=== PATIENT | female | born 1950 | race Caucasian/White ===

== ENCOUNTER 2021-11-17 20:13 | Inpatient (IN) | payer MEDICARE, OTHER ==
[~2021-11-17] VITALS: Ht 154.9 cm; Wt 91.6 kg
[~2021-11-17 20:13] MED LIST: ALPRAZOLAM0.5 MG PO; ASPIRIN CHEWABL81 MG PO; AZITHROMYCIN250 MG PO; BENADRYL 25MG C25 MG PO; CELEXA20 MG PO; CRESTOR5 MG PO; ECOTRIN81 MG PO; FERROUS SULFAT325 M2 PO; GLUCOPHAGE 500500 MG PO; HYDROCHLOROTHIA25 MG PO; HYDROCODON-ACE1 EAC6 PO; INVANZ1 GM IM; IPRAT-ALBUT 0.5-3 ML NEB; K-DUR TAB 10 M10 MEQ PO; LEVEMIR 10100 UNITS/ SC; LEVOFLOXACIN500 MG PO; LISINOPRIL10 MG PO; LOPRESSOR100 MG PO; LORTAB 5-325 M1 EACH PO; MULTI COMPLETE1 EACH PO; MYCOSTATIN CREA15 GM TOP; NORCO 10-325 T1 EACH PO; NORVASC10 MG PO; NOVOLIN 70100 UNIT/1 SQ; NOVOLOG 10100 UNITS1 SC; OMEPRAZOLE40 MG PO; PREDNISONE20 MG PO; PRINIVIL20 MG PO; ROBAXIN-750750 MG PO; SINGULAIR10 MG PO; TESSALON PERLE100 MG PO; TIZANIDINE HCL4 MG PO; VITAMIN B-121000 MCG PO; VITAMIN D32000 UNI1 PO; VITAMIN D350 MCG PO; ZANAFLEX4 MG PO
[2021-11-17 21:25] LABS: HEMOGLOBIN 14.3 gm/dl (12.3-15.3); RED BLOOD COUNT 5.6 M/UL (4.00-5.10); WHITE BLOOD COUNT 19.7 K/UL (4.5-11.0)
[2021-11-17 21:44] LABS: BUN/CREATININE RATIO 18 (0-10)
[2021-11-18 05:28] LABS: HEMOGLOBIN 12.3 gm/dl (12.3-15.3); RED BLOOD COUNT 4.93 M/UL (4.00-5.10); WHITE BLOOD COUNT 13.8 K/UL (4.5-11.0)
[2021-11-18 05:56] LABS: BUN/CREATININE RATIO 23 (0-10)
[2021-11-18] MEDS ORDERED: LISINOPRIL20 MG PO (10:01)
[2021-11-18] MEDS ORDERED: AMLODIPINE BESY10 MG PO (10:02)
[2021-11-18] MEDS ORDERED: POTASSIUM CHLO10 ME1 PO (10:02)
[2021-11-18] MEDS ORDERED: FLONASE 0.05% N16 GM (11:02)
[2021-11-18] MEDS ORDERED: VITAMIN D350 MCG PO (11:02)
--- NOTE | 2021-11-18 16:34 | NUR ---
COVID SWAB ALREADY COLLECTED AT 0144 ON 11/18/21. COVID WAS NEGATIVE.
[2021-11-19 02:41] LABS: HEMOGLOBIN 11.5 gm/dl (12.3-15.3); RED BLOOD COUNT 4.64 M/UL (4.00-5.10); WHITE BLOOD COUNT 11.8 K/UL (4.5-11.0)
[2021-11-19 03:16] LABS: BUN/CREATININE RATIO 24 (0-10)
[2021-11-20 02:37] LABS: HEMOGLOBIN 12.2 gm/dl (12.3-15.3); RED BLOOD COUNT 5.03 M/UL (4.00-5.10)
[2021-11-20 02:38] LABS: WHITE BLOOD COUNT 15.7 K/UL (4.5-11.0)
[2021-11-20 02:53] LABS: BUN/CREATININE RATIO 23 (0-10)
[2021-11-21 12:43] LABS: HEMOGLOBIN 12.5 gm/dl (12.3-15.3); RED BLOOD COUNT 4.92 M/UL (4.00-5.10); WHITE BLOOD COUNT 12.2 K/UL (4.5-11.0)
[2021-11-21 13:05] LABS: BUN/CREATININE RATIO 23 (0-10)
[2021-11-22 02:52] LABS: HEMOGLOBIN 11.5 gm/dl (12.3-15.3); RED BLOOD COUNT 4.63 M/UL (4.00-5.10); WHITE BLOOD COUNT 9.5 K/UL (4.5-11.0)
[2021-11-22 03:18] LABS: BUN/CREATININE RATIO 23 (0-10)
[2021-11-23 04:31] LABS: HEMOGLOBIN 11.1 gm/dl (12.3-15.3); RED BLOOD COUNT 4.49 M/UL (4.00-5.10); WHITE BLOOD COUNT 8.2 K/UL (4.5-11.0)
[2021-11-23 04:44] LABS: BUN/CREATININE RATIO 20 (0-10)
[2021-11-25 03:52] LABS: HEMOGLOBIN 12.3 gm/dl (12.3-15.3)
[2021-11-25 04:10] LABS: RED BLOOD COUNT 4.98 M/UL (4.00-5.10); WHITE BLOOD COUNT 11.8 K/UL (4.5-11.0)
[2021-11-25 04:11] LABS: BUN/CREATININE RATIO 10 (0-10)
[2021-11-26 06:32] LABS: BUN/CREATININE RATIO 14 (0-10)
[2021-11-26 06:38] LABS: HEMOGLOBIN 11.6 gm/dl (12.3-15.3); RED BLOOD COUNT 4.59 M/UL (4.00-5.10); WHITE BLOOD COUNT 10.8 K/UL (4.5-11.0)
[2021-11-27 10:04] LABS: HEMOGLOBIN 12.6 gm/dl (12.3-15.3); RED BLOOD COUNT 5.08 M/UL (4.00-5.10); WHITE BLOOD COUNT 15.3 K/UL (4.5-11.0)
[2021-11-27 10:31] LABS: BUN/CREATININE RATIO 20 (0-10)
[2021-11-28 10:23] LABS: HEMOGLOBIN 11.7 gm/dl (12.3-15.3); RED BLOOD COUNT 4.7 M/UL (4.00-5.10); WHITE BLOOD COUNT 10.4 K/UL (4.5-11.0)
[2021-11-28 10:46] LABS: BUN/CREATININE RATIO 16 (0-10)
[2021-11-29 04:04] LABS: HEMOGLOBIN 11.8 gm/dl (12.3-15.3); RED BLOOD COUNT 4.79 M/UL (4.00-5.10); WHITE BLOOD COUNT 9.9 K/UL (4.5-11.0)
[2021-11-29 04:12] LABS: BUN/CREATININE RATIO 12 (0-10)
[2021-11-30 05:15] LABS: HEMOGLOBIN 11.2 gm/dl (12.3-15.3); RED BLOOD COUNT 4.54 M/UL (4.00-5.10); WHITE BLOOD COUNT 8.8 K/UL (4.5-11.0)
[2021-11-30 05:34] LABS: BUN/CREATININE RATIO 8 (0-10)
[2021-11-30] MEDS ORDERED: ERYTHROMYCIN250 M1 PO (18:57)
[2021-11-30] MEDS ORDERED: KLOR-CON M2020 MEQ PO (18:57)
[2021-11-30] MEDS ORDERED: LOPRESSOR 50 MG50 MG PO (18:57)
[2021-11-30] MEDS ORDERED: METOCLOPRAMIDE H5 MG PO (18:57)
== END 2021-11-30 20:28 | disposition home health service (06) | DRG 380 ==
LOC: ER1 20:13 → CDU 11-18 02:27 → MED SURG 4 11-18 02:27 → CCU 11-18 02:27 → MED SURG 4 11-18 15:37
PROVIDERS: Internal Medicine; Internal Medicine Gastroenterology; Physician Assistant; ADMIT Internal Medicine
PROC: 3E03329 Introduction of Other Anti-infective into Peripheral Vein, Percutaneous Approach (ICD-10-PCS; 2021-11-19)
PROC: 0DB78ZX Excision of Stomach, Pylorus, Via Natural or Artificial Opening Endoscopic, Diagnostic (ICD-10-PCS; principal; 2021-11-19 10:10)
DX: K31.1 Adult hypertrophic pyloric stenosis (principal); A41.9 Sepsis, unspecified organism; J18.9 Pneumonia, unspecified organism; K31.0 Acute dilatation of stomach; N39.0 Urinary tract infection, site not specified; J96.11 Chronic respiratory failure with hypoxia; E11.43 Type 2 diabetes mellitus with diabetic autonomic (poly)neuropathy; Z20.822 Contact with and (suspected) exposure to COVID-19; I10 Essential (primary) hypertension; F41.9 Anxiety disorder, unspecified; K21.9 Gastro-esophageal reflux disease without esophagitis; K74.60 Unspecified cirrhosis of liver; R91.8 Other nonspecific abnormal finding of lung field; E83.42 Hypomagnesemia; Z66 Do not resuscitate; E78.5 Hyperlipidemia, unspecified; B96.1 Klebsiella pneumoniae [K. pneumoniae] as the cause of diseases classified elsewhere; E87.6 Hypokalemia; J44.9 Chronic obstructive pulmonary disease, unspecified; K31.84 Gastroparesis; R53.81 Other malaise; E66.01 Morbid (severe) obesity due to excess calories; Z99.81 Dependence on supplemental oxygen; Z79.899 Other long term (current) drug therapy; Z90.710 Acquired absence of both cervix and uterus; Z98.890 Other specified postprocedural states; Z90.49 Acquired absence of other specified parts of digestive tract; Z88.0 Allergy status to penicillin; Z88.5 Allergy status to narcotic agent; Z88.2 Allergy status to sulfonamides; Z82.49 Family history of ischemic heart disease and other diseases of the circulatory system; Z83.3 Family history of diabetes mellitus; Z79.82 Long term (current) use of aspirin; B96.89 Other specified bacterial agents as the cause of diseases classified elsewhere; K21.00 Gastro-esophageal reflux disease with esophagitis, without bleeding
CPT/HCPCS: 36415; 51702; 71045; 80048; 80053; 81001; 82009; 82800; 82962; 83605; 83690; 83735; 84132; 85025; 85027; 87040; 87077; 87086; 87186; 88342; 93005; 96374; 96375; 97110; 97110-GP-CQ; 97116; 97116-GP-CQ; 97161; 97530; 97530-GP-CQ; 99285; C9113; J1170; J1364; J1956; J2405; J2550; J2704; J2765; J3475; J3480; J7030; J7120; Q9967; U0002

== ENCOUNTER 2021-12-16 08:33 | Emergency (ER) | payer MEDICARE ==
[~2021-12-16 08:33] MED LIST changes: +AMLODIPINE BESY10 MG PO; +ERYTHROMYCIN250 M1 PO; -HYDROCODON-ACE1 EAC6 PO; +KLOR-CON M2020 MEQ PO; +LISINOPRIL20 MG PO; +LOPRESSOR 50 MG50 MG PO; +METOCLOPRAMIDE H5 MG PO; +POTASSIUM CHLO10 ME1 PO
[2021-12-16 10:33] LABS: HEMOGLOBIN 12.4 gm/dl (12.3-15.3); RED BLOOD COUNT 5.16 M/UL (4.00-5.10); WHITE BLOOD COUNT 14.2 K/UL (4.5-11.0)
[2021-12-16 11:13] LABS: BUN/CREATININE RATIO 31 (0-10)
[2021-12-18] MEDS ORDERED: LISINOPRIL20 MG PO (10:15)
[2021-12-18] MEDS ORDERED: FLONASE 0.05% N16 GM (11:02)
[2021-12-18] MEDS ORDERED: ROBAXIN 750 MG750 MG PO (17:59)
[2021-12-18] MEDS ORDERED: CRESTOR5 MG PO (18:00)
[2021-12-18] MEDS ORDERED: ERYTHROMYCIN250 M1 PO (18:00)
[2021-12-18] MEDS ORDERED: HYDROCODON-ACE1 EAC6 PO (20:21)
== END 2021-12-16 16:00 | disposition home or self-care (01) ==
LOC: ER1 08:33
PROVIDERS: Physician Assistant
DX: E86.0 Dehydration (principal); R11.10 Vomiting, unspecified; I11.9 Hypertensive heart disease without heart failure; J44.9 Chronic obstructive pulmonary disease, unspecified; E11.9 Type 2 diabetes mellitus without complications; Z79.84 Long term (current) use of oral hypoglycemic drugs; Z88.0 Allergy status to penicillin; Z88.2 Allergy status to sulfonamides
CPT/HCPCS: 80053; 81001; 82550; 82553; 82962; 83605; 84484; 85025; 87040; 87086; 93005; 96374; 96375; 99284; C9113; J2405